=== PATIENT | female | born 1935 | race Caucasian/White ===

== ENCOUNTER 2019-02-11 15:11 | Emergency (ER) | payer OTHER ==
[~2019-02-11] VITALS: Ht 149.9 cm; Wt 55.8 kg
[2019-02-11] MEDS ORDERED: BUTALB-APAP-CA1 EACH PO (17:26)
[2019-02-11] MEDS ORDERED: MOBIC7.5 MG PO (17:26)
[2019-02-11] MEDS ORDERED: TRAMADOL 50 MG50 MG PO (17:26)
[2019-02-11 19:10] VITALS: BP 122/48
== END 2019-02-11 19:11 | disposition home or self-care (01) ==
LOC: ER 15:11
DX: M79.604 Pain in right leg (principal); G44.209 Tension-type headache, unspecified, not intractable; J06.9 Acute upper respiratory infection, unspecified; Z88.0 Allergy status to penicillin; Z88.1 Allergy status to other antibiotic agents; Z88.8 Allergy status to other drugs, medicaments and biological substances

== ENCOUNTER → 2019-03-27 | Outpatient (CLI) | payer OTHER ==
[~2019-03-27] MED LIST: BUTALB-APAP-CA1 EACH PO; MOBIC7.5 MG PO; TRAMADOL 50 MG50 MG PO
== END ==
LOC: CAT
DX: Z13.6 Encounter for screening for cardiovascular disorders (principal); E78.00 Pure hypercholesterolemia, unspecified; I25.10 Atherosclerotic heart disease of native coronary artery without angina pectoris